=== PATIENT | male | born 1960 | race Caucasian/White ===

== ENCOUNTER → 2017-01-27 | Outpatient (CLI) | payer OTHER ==
[2014-11-24 11:13] VITALS: BP 123/77
[~2017-01-27] MED LIST: ASPI325T4 PO; IOHEXOL 240 MG/ML 50ML VIAL. PO ONE; IOHEXOL 300 MG/ML 100ML VIAL. IV ONE; TAMS0.4C97 PO
--- NOTE | 2017-01-27 13:27 | KCIC ---
PROCEDURE CT abdomen and pelvis with contrast. HISTORY Reflux with esophagitis. Abdominal pain for a few weeks and left lower quadrant pain. TECHNIQUE Axial images and coronal and sagittal re-formatted images are provided. Oral contrast and 100 milliliters of intravenous Omnipaque 300 was administered without complication. One or more of the following individualized dose reduction techniques were utilized for this exam: 1. Automated exposure control. 2. Adjustment of the mA and/or kV according to patient's size. 3. Use of iterative reconstruction technique. COMPARISON None. FINDINGS There is dependent atelectasis. There is no pleural effusion. Heart is not enlarged. Liver dome lesion demonstrates discontinuous peripheral enhancement measuring 18 millimeters in size. Gallbladder is unremarkable. Low-density lesion anteriorly within the spleen could represent small cyst or lymphangioma, 8 millimeters. Pancreas and adrenals are unremarkable. Kidneys are symmetrically perfused. Aorta is normal caliber. There is minimal plaquing at the right renal artery origin. Distal esophagus is grossly unremarkable by CT. Stomach is unremarkable. There is no dilated small bowel loop or air-fluid level. Normal appendix is noted. Colon is grossly unremarkable. Bladder is unremarkable. Prostate is not enlarged. Calcified phleboliths are noted in the pelvis. Minimal degenerative change is noted in the spine. IMPRESSION 1. No acute abdominal findings. 2. Liver dome lesion most likely represents hemangioma, options for further evaluation would include multi phase CT or MRI. Ultrasound may be limited given location. Alternatively, six-month follow-up could be performed. Electronically signed by: Ok Pate MD (Jan 27, 2017 13:25:40)
== END | disposition home or self-care (01) ==
LOC: KCIC CT 10:13
PROVIDERS: ATTEND Family Medicine
DX: K21.9 Gastro-esophageal reflux disease without esophagitis (principal)
CPT/HCPCS: 74177; Q9966; Q9967

== ENCOUNTER → 2019-10-31 | Outpatient (CLI) | payer OTHER ==
[2014-11-24 11:13] VITALS: BP 123/77
[~2019-10-31] MED LIST changes: -ASPI325T4 PO; +ASPI325T8 PO; -IOHEXOL 240 MG/ML 50ML VIAL. PO ONE; -IOHEXOL 300 MG/ML 100ML VIAL. IV ONE
--- NOTE | 2019-10-31 16:04 | KCIC ---
EXAM: Right shoulder, 3 views. HISTORY: Pain and limited range of motion. COMPARISON: None. FINDINGS: 3 views of the right shoulder obtained. There is no fracture, dislocation or subluxation. IMPRESSION: No acute osseous finding. Electronically signed by: Nataly Escamilla MD (10/31/2019 4:02 PM) [place] [id number]
== END | disposition home or self-care (01) ==
LOC: KCIC 14:16
PROVIDERS: ATTEND Family Medicine
DX: M25.511 Pain in right shoulder (principal)
CPT/HCPCS: 73030